=== PATIENT | female | born 1970 | race Caucasian/White ===

== ENCOUNTER 2023-10-30 10:44 | Emergency (ER) | payer MEDICAID ==
[~2023-10-30] VITALS: Ht 154.9 cm; Wt 81.9 kg
[2023-10-30 11:06] VITALS: BP 147/96; PULSE 116; RESP 16; TEMP 97.7; O2SAT 98
[2023-10-30 11:29] VITALS: TEMP 97.7
[2023-10-30] MEDS ORDERED: BENZ100C6 PO (12:45)
[2023-10-30] MEDS ORDERED: ROBAC PO ×2 (12:45→12:46)
[2023-10-30] MEDS ORDERED: IBUP-2213 PO (12:45)
[2023-10-30] MEDS ORDERED: PROM118S5 PO (12:47)
[2023-10-30] MEDS ORDERED: IBUPROFEN 600 MG TAB PO SCH (13:00)
[2023-10-30 13:01] VITALS: BP 119/80; PULSE 61; RESP 18; O2SAT 98
[2023-10-30 13:59] LABS: FLU A ANTIGEN negative (NEGATIVE); FLU B ANTIGEN negative (NEGATIVE)
== END 2023-10-30 13:00 | disposition home or self-care (01) ==
LOC: MED 10:44
DX: J06.9 Acute upper respiratory infection, unspecified (principal); Z20.822 Contact with and (suspected) exposure to COVID-19; E11.9 Type 2 diabetes mellitus without complications; I10 Essential (primary) hypertension; Z79.4 Long term (current) use of insulin; Z79.899 Other long term (current) drug therapy
CPT/HCPCS: 99283